=== PATIENT | female | born 1985 | race Asian ===

== ENCOUNTER 2016-07-18 17:46 | Emergency (ER) | payer OTHER ==
[~2016-07-18] VITALS: Ht 177.8 cm; Wt 140.6 kg
[~2016-07-18 17:46] MED LIST: HYDR25TA60 PO
[2016-07-18 21:24] VITALS: BP 129/84; TEMP 98.6
== END 2016-07-18 21:34 | disposition home or self-care (01) ==
LOC: ED 17:46
DX: S50.01XA Contusion of right elbow, initial encounter (principal); S00.03XA Contusion of scalp, initial encounter; Y04.2XXA Assault by strike against or bumped into by another person, initial encounter; Y92.098 Other place in other non-institutional residence as the place of occurrence of the external cause
CPT/HCPCS: 96372; 99282; J1885; J2175

== ENCOUNTER 2016-08-11 09:58 | Emergency (ER) | payer OTHER ==
[~2016-08-11] VITALS: Ht 177.8 cm; Wt 152.9 kg
[2016-08-11] MEDS ORDERED: METFORMIN HCL500 M1 PO (10:21)
[2016-08-11] MEDS ORDERED: NEXPLANON68 MG SC (10:22)
[2016-08-11 11:55] VITALS: BP 126/93; TEMP 98
== END 2016-08-11 11:58 | disposition home or self-care (01) ==
LOC: ED 09:58
DX: K21.0 Gastro-esophageal reflux disease with esophagitis (principal); F41.1 Generalized anxiety disorder
CPT/HCPCS: 93005; 99282

== ENCOUNTER 2017-02-27 11:57 | Emergency (ER) | payer OTHER ==
[~2017-02-27] VITALS: Ht 177.8 cm; Wt 140.6 kg
[~2017-02-27 11:57] MED LIST changes: +METFORMIN HCL500 M1 PO; +NEXPLANON68 MG SC
[2017-02-27 12:22] VITALS: BP 128/90; TEMP 98.3
== END 2017-02-27 14:34 | disposition home or self-care (01) ==
LOC: ED 11:57
DX: N76.2 Acute vulvitis (principal)
CPT/HCPCS: 96372; 99283; J2175; J2405

== ENCOUNTER 2017-12-28 10:15 | Emergency (ER) | payer OTHER ==
[~2017-12-28] VITALS: Ht 177.8 cm; Wt 140.6 kg
[2017-12-28 12:15] VITALS: BP 104/76; TEMP 98
== END 2017-12-28 12:15 | disposition home or self-care (01) ==
LOC: ED 10:15
DX: S40.011A Contusion of right shoulder, initial encounter (principal); S50.01XA Contusion of right elbow, initial encounter; S80.01XA Contusion of right knee, initial encounter; V49.3XXA Car occupant (driver) (passenger) injured in unspecified nontraffic accident, initial encounter
CPT/HCPCS: 99283

== ENCOUNTER 2018-04-01 07:38 | Emergency (ER) | payer OTHER ==
[~2018-04-01] VITALS: Ht 177.8 cm; Wt 140.6 kg
[2018-04-01 07:45] VITALS: TEMP 98.1
[2018-04-01 09:43] VITALS: BP 110/64
== END 2018-04-01 09:43 | disposition home or self-care (01) ==
LOC: ED 07:38
DX: T50.8X5A Adverse effect of diagnostic agents, initial encounter (principal)
CPT/HCPCS: 96372; 99283; J0171; J2930

== ENCOUNTER 2018-09-04 07:34 | Emergency (ER) | payer BC, OTHER ==
[~2018-09-04] VITALS: Ht 177.8 cm; Wt 140.6 kg
[2018-09-04 07:47] VITALS: TEMP 99
[2018-09-04 08:21] LABS: PLATELET COUNT 267 K/uL (152-353)
[2018-09-04 08:39] LABS: PARTIAL THROMBOPLASTIN TIME 24.1 SECONDS (24.5-33.6)
[2018-09-04 08:40] LABS: POTASSIUM 3.8 mmol/L (3.6-5.2); SODIUM 134 mmol/L (136-145)
[2018-09-04 16:17] VITALS: BP 112/72
== END 2018-09-04 18:48 | disposition home or self-care (01) ==
LOC: ED 07:34
PROVIDERS: Hospitalist
DX: E86.0 Dehydration (principal); R55 Syncope and collapse; Z3A.17 17 weeks gestation of pregnancy; R00.0 Tachycardia, unspecified
CPT/HCPCS: 36415; 80053; 80307; 80320; 81000; 82550; 82553; 82805; 84484; 85027; 85379; 85610; 85730; 93005; 96360; 96361; 96372; 96374; 99284; J1650; J2405

== ENCOUNTER 2018-09-04 18:35 | Outpatient (CLI) | payer BC, OTHER | END 2018-09-04 20:07 | disposition short-term general hospital (02) | LOC: AMB 18:35 | DX: R55 Syncope and collapse (principal); R79.89 Other specified abnormal findings of blood chemistry | CPT/HCPCS: A0425; A0429 ==

== ENCOUNTER 2019-02-28 01:10 | Emergency (ER) | payer OTHER ==
[~2019-02-28] VITALS: Ht 177.8 cm; Wt 146.5 kg
[2019-02-28 02:00] VITALS: BP 141/97; TEMP 98.2
[2019-02-28] MEDS ORDERED: HYDROCHLOROT12.5 M1 PO (09:48)
== END 2019-02-28 04:45 | disposition home or self-care (01) ==
LOC: ED 01:10
DX: M79.651 Pain in right thigh (principal)
CPT/HCPCS: 99281

== ENCOUNTER 2019-02-28 09:38 | Emergency (ER) | payer OTHER ==
[~2019-02-28] VITALS: Ht 177.8 cm; Wt 146.5 kg
[2019-02-28] MEDS ORDERED: HYDROCHLOROT12.5 M1 PO (09:48)
[2019-02-28 09:49] VITALS: BP 145/84; TEMP 98.2
[2019-02-28 10:08] LABS: PLATELET COUNT 264 K/uL (152-353)
[2019-02-28 10:18] LABS: POTASSIUM 3.2 mmol/L (3.6-5.2)
== END 2019-02-28 11:00 | disposition home or self-care (01) ==
LOC: ED 09:38
PROVIDERS: Emergency Medicine
DX: M79.661 Pain in right lower leg (principal)
CPT/HCPCS: 80053; 85027; 85379; 99283

== ENCOUNTER 2020-05-18 08:23 | Outpatient (CLI) | payer OTHER ==
[~2020-05-18 08:23] MED LIST changes: +HYDROCHLOROT12.5 M1 PO
== END 2020-05-18 21:55 | disposition home or self-care (01) ==
LOC: INF 08:23
PROVIDERS: ATTEND Internal Medicine
DX: Z23 Encounter for immunization (principal)
CPT/HCPCS: 96372

== ENCOUNTER 2020-05-31 08:06 | Outpatient (CLI) | payer OTHER ==
[~2020-05-31] VITALS: Ht 177.8 cm; Wt 105.2 kg
== END 2020-05-31 19:05 | disposition home or self-care (01) ==
LOC: DIABINF 08:06
PROVIDERS: ATTEND Internal Medicine Endocrinology, Diabetes & Metabolism
DX: E88.81 Metabolic syndrome and other insulin resistance (principal); I10 Essential (primary) hypertension; E28.2 Polycystic ovarian syndrome; R73.03 Prediabetes; Z68.33 Body mass index [BMI] 33.0-33.9, adult
CPT/HCPCS: 82948; 99203; J1815

== ENCOUNTER 2020-06-07 07:54 | Outpatient (CLI) | payer OTHER ==
[~2020-06-07] VITALS: Ht 177.8 cm; Wt 105.2 kg
== END 2020-06-07 21:05 | disposition home or self-care (01) ==
LOC: DIABINF 07:54
PROVIDERS: ATTEND Internal Medicine Endocrinology, Diabetes & Metabolism
DX: E88.81 Metabolic syndrome and other insulin resistance (principal); I10 Essential (primary) hypertension; E28.2 Polycystic ovarian syndrome; R73.03 Prediabetes; Z68.33 Body mass index [BMI] 33.0-33.9, adult
CPT/HCPCS: 82948; 96365; 96366; 96521; 99204; J1718; J1815

== ENCOUNTER 2020-06-09 08:19 | Outpatient (CLI) | payer OTHER | END 2020-06-09 20:55 | disposition home or self-care (01) | LOC: INF 08:19 | PROVIDERS: ATTEND Internal Medicine | DX: Z23 Encounter for immunization (principal) | CPT/HCPCS: 96372 ==

== ENCOUNTER 2021-07-26 01:20 | Emergency (ER) | payer OTHER ==
[~2021-07-26] VITALS: Ht 177.8 cm; Wt 153.3 kg
[2021-07-26 03:13] LABS: PLATELET COUNT 294 K/uL (152-353)
[2021-07-26 04:40] VITALS: BP 128/79; TEMP 98.1
== END 2021-07-26 04:40 | disposition home or self-care (01) ==
LOC: ED 01:20
PROVIDERS: Emergency Medicine Emergency Medical Services
DX: K80.20 Calculus of gallbladder without cholecystitis without obstruction (principal)
CPT/HCPCS: 36415; 80053; 81000; 81025; 85027; 96360; 96361; 96374; 96375; 99284; J1885; J2270; J2405

== ENCOUNTER 2022-01-04 14:42 | Emergency (ER) | payer OTHER ==
[~2022-01-04] VITALS: Ht 177.8 cm; Wt 140.6 kg
[2022-01-04 14:45] VITALS: TEMP 98.2
[2022-01-04] MEDS ORDERED: CYCL10TA35 PO (15:41)
[2022-01-04 15:50] VITALS: BP 136/80
== END 2022-01-04 15:51 | disposition home or self-care (01) ==
LOC: ED 14:42
DX: S40.011A Contusion of right shoulder, initial encounter (principal); S50.01XA Contusion of right elbow, initial encounter; M62.838 Other muscle spasm; W18.2XXA Fall in (into) shower or empty bathtub, initial encounter; Y92.89 Other specified places as the place of occurrence of the external cause
CPT/HCPCS: 99283

== ENCOUNTER 2022-07-04 09:41 | Emergency (ER) | payer OTHER ==
[~2022-07-04] VITALS: Ht 177.8 cm; Wt 149.7 kg
[~2022-07-04 09:41] MED LIST changes: +CYCL10TA35 PO
[2022-07-04 09:45] VITALS: BP 146/90; TEMP 97.7
== END 2022-07-04 11:05 | disposition home or self-care (01) ==
LOC: ED 09:41
DX: N94.6 Dysmenorrhea, unspecified (principal)
CPT/HCPCS: 81000; 81025; 96372; 99283; J1100